=== PATIENT | male | born 1995 | race Caucasian/White ===

== ENCOUNTER 2021-06-05 14:24 | Emergency (ER) | payer SELFPAY ==
[~2021-06-05 14:24] MED LIST: Iopamidol 370 76% 100 ML VIAL ONE; Magnevist 469MG/ML 20 ML VIAL ONE
[2021-06-05 15:00] LABS: #Basophils 0.1 thou/uL (0.0-0.2); #Eosinphils 0.1 thou/uL (0.0-0.7); #Lymphocytes 1.8 thou/uL (1.20-3.40); #Monocytes 0.5 thou/uL (0.11-0.59); #Neutrophils 6.9 thou/uL (1.40-6.50); %Basophils 0.8 % (0.0-1.0); %Eosinophils 0.9 % (0.0-10.0); %Lymphocytes 19.4 % (21.0-51.0); %Monocytes 4.8 % (0.0-10.0); %Neutrophils 74.1 % (42.0-75.0); Hemoglobin 15.2 g/dL (14.0-18.0); Mean Corpuscular HGB CONC 34.1 g/dL (32.0-36.0); Mean Corpuscular Hemoglobin 30.1 pg (27.0-31.0); Mean Corpuscular Volume 88.2 fL (78.0-98.0); Mean Platelet Volume 7.6 fL (7.4-10.4); Platelet Count 284 thou/uL (130-400); RBC Distribution Width 11.2 % (11.5-14.5); Red Blood Cell (RBC) Count 5.07 mill/uL (4.70-6.10); White Blood Cell (WBC) Count 9.4 thou/uL (4.8-10.8)
[2021-06-05 15:28] LABS: ALT (SGPT) 39 U/L (8-55); AST (SGOT) 23 U/L (5-34); Albumin 4.7 g/dL (3.5-5.0); Alkaline Phosphatase 68 U/L (40-110); Anion Gap 15 mmol/L (10-20); BUN (Urea Nitrogen) 16 mg/dL (8.9-20.6); Calc. Creatinine Clearance 0 mL/min (70-130); Calcium 10.3 mg/dL (7.8-10.44); Carbon Dioxide 26 mmol/L (22-29); Chloride 101 mmol/L (98-107); Globulin 3.1 g/dL (2.4-3.5); Glucose 135 mg/dL (70-105); Potassium 3.6 mmol/L (3.5-5.1); Protein, Total 7.8 g/dL (6.0-8.3); Sodium 138 mmol/L (136-145)
[2021-06-05] MEDS ORDERED: diphenhydrAMINE 50 MG/ML VIAL ONE (16:28)
[2021-06-05] MEDS ORDERED: Ketorolac Tromethamine 30 MG/ML VIAL ONE (16:28)
[2021-06-05] MEDS ORDERED: Metoclopramide HCl 10 MG/2 ML VIAL ONE (16:28)
== END 2021-06-05 20:51 | disposition home or self-care (01) ==
LOC: ERS 14:24
DX: G43.909 Migraine, unspecified, not intractable, without status migrainosus (principal); Z86.73 Personal history of transient ischemic attack (TIA), and cerebral infarction without residual deficits
CPT/HCPCS: 36415; 70450; 70496; 70498; 70553; 80053; 85025; 96374; 96375; A9579; J1200; J1885; J2765; Q9967